=== PATIENT | female | born 1975 | race Caucasian/White ===

== ENCOUNTER → 2017-04-19 | Outpatient (CLI) | payer OTHER | LOC: US 13:10 | DX: E01.0 Iodine-deficiency related diffuse (endemic) goiter (principal) | CPT/HCPCS: 76536 ==

== ENCOUNTER → 2021-02-09 | Outpatient (CLI) | payer OTHER ==
[~2021-02-09] MED LIST: ACID CONTROL150 MG PO; FLEXERIL 10 MG10 MG PO; GABAPENTIN300 MG PO; HYDROCHLOROTHIA25 MG PO; NAPROXEN500 MG PO; PROVENTIL HFA 61 INH INH; VENLAFAXINE HCL50 MG PO; VITAMIN D10000 UNIT PO
== END ==
LOC: MAMO 08:30
DX: Z12.31 Encounter for screening mammogram for malignant neoplasm of breast (principal)
CPT/HCPCS: 77063; 77067

== ENCOUNTER → 2021-03-23 | Outpatient (CLI) | payer OTHER | LOC: MAMO 13:00 | DX: R92.8 Other abnormal and inconclusive findings on diagnostic imaging of breast (principal) | CPT/HCPCS: 76641-LT; 76641-RT; 77065; G0279 ==